=== PATIENT | female | born 1965 | race Caucasian/White ===

== ENCOUNTER 2020-10-24 04:56 | Emergency (ER) | payer OTHER | END 2020-10-24 06:37 | disposition home or self-care (01) | LOC: FER 04:56 | DX: M62.838 Other muscle spasm (principal); I10 Essential (primary) hypertension; M54.5 Low back pain; G89.29 Other chronic pain; F17.210 Nicotine dependence, cigarettes, uncomplicated; Z79.891 Long term (current) use of opiate analgesic; Z79.899 Other long term (current) drug therapy; Z88.2 Allergy status to sulfonamides; Z88.5 Allergy status to narcotic agent; Z98.890 Other specified postprocedural states | CPT/HCPCS: 96372; 99283; J1885; J3360 ==